=== PATIENT | female | born 1965 | race Caucasian/White ===

== ENCOUNTER 2019-06-18 05:39 | Observation (INO) | payer OTHER ==
[~2019-06-18] VITALS: Ht 170.2 cm; Wt 66.2 kg
--- NOTE | ~2019-06-18 | CON ---
[address] [address] CONSULTATION Name: VALLESHIELA Room: [address] IN M.R.#: [id number] Admission: 06/18/19 Attend Phys: Luis Sofia MD Discharge: Date of : 63 Report #: [id number] THIS REPORT FOR: //name// [facility] DATE OF SERVICE: 06/18/2019 HISTORY OF PRESENT ILLNESS: This is a 54-year-old female patient who was seen by me for diplopia. History is not very clear. She indicates that some problem with the left eye is going on for long time. She was never able to blink on the left side. She noticed some diplopia, looks like yesterday morning. It goes away by closing one eye. She also had some numbness on the left side, which she believes started when she got up. Review of systems is positive for rheumatoid arthritis. She took all kind treatment for that. She has knee problems and she thinks she needs a new knee, but because of active rheumatoid arthritis, they have not addressed that question yet. She is also under a lot of stress. She had a sinus surgery in the past. Records indicate that she has history of supraventricular tachycardia. She had a hysterectomy and according to the medical record, she had gastric sleeve. This was her relevant 14-point review of systems. PAST MEDICAL HISTORY: Positive for immunological disorder. FAMILY HISTORY: Unremarkable. SOCIAL HISTORY: She smokes, but does not drink much alcohol. PHYSICAL EXAMINATION: GENERAL: Indicates she is alert. NEUROLOGIC: She is responsive. She can follow simple commands. Her speech looks intact. 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 She does have some subjective problem with the left arm as far as sensation is concerned. Otherwise, neuromuscular examination was unremarkable. CARDIOPULMONARY: Cardiac and respiratory examinations appear noncontributory. VITAL SIGNS: Her blood pressure is 124/65, pulse is 75, and temperature is 99.9. IMAGING STUDY: Her CT angiogram was done by Emergency Room physician that does show some atherosclerotic disease, but does not show any vasculitis. LABORATORY DATA: White count is 6.5 and blood sugar is trace high at 154. 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 She also has some tingling and numbness in the left [place], [place] [address] CONSULTATION Name: SHIELA VALLE Room: [address] IN [facility]#: [id number] Admission: 06/18/19 Attend Phys: Luis Sofia MD Discharge: Date of : 63 Report #: [id number] is subjective. MRI is reasonable to exclude any pathology including demyelinating disorder or any small stroke. 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 I talked to the patient. I discussed the limitation of our hospital that an poultry pathologist does not come here on a regular basis and we do not have a website project manager. I discussed her options in that regard. She would like to stay here and get the preliminary workup done, but after that she will make an appointment with a website project manager and poultry pathologist to get the further workup done. I have ordered an MRI. I ordered acetylcholine receptor antibodies. I will order a thyroid function test and B12 and copper because of her sleeve surgery. We will see what it shows and decide about further management after that. Thank you very much for this referral. By: 1421 [id number] Gomez MD /nt
[2019-06-18 05:47] VITALS: BP 121/65
[2019-06-18] MEDS ORDERED: RAYOS5 MG PO (06:00)
[2019-06-18] MEDS ORDERED: PLAQUENIL200 MG PO (06:01)
[2019-06-18] MEDS ORDERED: METHOTREXATE IM (06:01)
[2019-06-18] MEDS ORDERED: SULFASALAZINE500 M4 PO (06:02)
[2019-06-18] MEDS ORDERED: OLMESARTAN PO (06:03)
[2019-06-18] MEDS ORDERED: [UNRECOGNIZED DRUG - OTHER] PO (06:03)
[2019-06-18] MEDS ORDERED: CHOLESTEROL MED (06:03)
[2019-06-18] MEDS ORDERED: PERCOCET 10-321 EAC1 PO (06:04)
[2019-06-18] MEDS ORDERED: PROZAC (06:06)
[2019-06-18 06:09] LABS: ABSOLUTE BASOPHILS 0.1 thou/uL (0.0-0.2); ABSOLUTE EOSINOPHILS 0.1 thou/uL (0.0-0.7); ABSOLUTE LYMPHOCYTES 1.8 thou/uL (0.8-5.3); ABSOLUTE MONOCYTES 0.7 thou/uL (0.0-1.2); ABSOLUTE NEUTROPHILS 3.8 thou/uL (1.6-8.1); BASOPHILS 1.1 %; EOSINOPHILS 1.1 %; HEMOGLOBIN 12.6 gm/dL (12.0-15.0); LYMPHOCYTES 27.9 %; MCH 28.4 pg (26.0-34.0); MCHC 33.1 g/dL (28.0-37.0); MCV 85.6 fL (80.0-100.0); MONOCYTES 10.5 %; MPV 7.9 fl. (7.2-11.1); NUCLEATED RBCS 0 /100WBC; PLATELET COUNT* 358 thou/uL (150-400); POLYS 59.4 %; RBC 4.44 mil/uL (4.20-5.00); RDW-CV 16.2 % (10.5-14.5); WBC 6.5 thou/uL (4.0-11.0)
[2019-06-18 06:19] LABS: PROTIME 10.6 Seconds (9.20-11.50)
[2019-06-18 06:23] LABS: CALCIUM 9.6 mg/dL (8.5-10.1); CREATININE 0.8 mg/dL (0.6-1.3); POTASSIUM 3.5 mmol/L (3.5-5.1)
[2019-06-18 06:33] LABS: ALBUMIN 3.4 g/dL (3.4-5.0); TOTAL BILIRUBIN 0.2 mg/dL (<0.1-1.0); TOTAL PROTEIN 6.8 g/dL (6.4-8.2)
--- NOTE | 2019-06-18 10:24 | NUR ---
PT ELOPED FACILITY AT 0900, STAFF NOT NOTIFIED OR SEE PATIENT LEAVE. PATIENT CAME BACK TO FACILITY AT 0925 AND WALKED BACK INTO HER ROOM WITH A [employer] CAPPACHINO IN HAND, DAUGHTER AT SIDE. PT STATES SHE JUST LEFT TO MOVE HER CAR AROUND. SHE LEFT FACILITY TO GET HER DAUGHTER BREAKFAST AT [employer]. SOHAIL KAYE ER CHARGE NURSE, SIDNEY TILLMAN SECURITY, AND I STATED TO HER THAT IS UNACCEPTABLE BEHAVIOR AND WILL NOT BE TOLERATED IN ER. SHE LEFT THE FACILITY WITH IV STILL IN PLACE AND STILL IN PLACE WHEN SHE CAME BACK. SHE WAS NOTIFIED SHE CAN NOT LEAVE THE FACILITY, ORDERS TO BE ADMITTED TO THE HOSPITAL AND SHE VERBALZIED UNDERSTANDING AND MOVING FORWARD WITH POC.
[2019-06-18 13:19] VITALS: BP 124/65
[2019-06-18 14:10] VITALS: BP 124/65
--- NOTE | 2019-06-18 14:10 | EKG ---
[place] [address] ELECTROCARDIOGRAM REPORT Name: VALLESHIELA Room: [place] [address] ADM IN [facility]#: [id number] Admission: 06/18/19 Attend Phys: Luis Sofia MD Discharge: Date of : 63 Report #: [id number] THIS REPORT FOR: //name// [facility] ED Test Date: 2019-06-18 Test Time: 06:08:45 Pat Name: SHIELA VALLE Department: Room: [facility] Gender: F [place]: [place] : 1965 Requested By: Aylin Rey Order Number: [id number] MD: Thien Mayorga Measurements Intervals [place] Rate: 83 P: 59 VA: 120 QRS: 83 QRSD: 82 T: 84 QT: 376 QTc: 442 Interpretive Statements Sinus rhythm Probable left atrial enlargement Nonspecific T abnormalities, diffuse No previous ECG available for comparison Electronically Signed On 06-18-2019 14:10:09 GREASE MAKER by Thien Mayorga [email or web address] <ELECTRONICALLY SIGNED> By: Thien Mayorga MD, [facility] 06/18/19 1410 0608 Thien Mayorga MD, FACC /EPI
[2019-06-18 15:30] VITALS: BP 147/66
--- NOTE | 2019-06-18 16:39 | NUR ---
PT ADMITTED TO ROOM 214 VIA CART FROM ED AFTER GOING TO MRI AT APPROXIMATELY 1530 WITH STROKE LIKE SYMPTOMS- DIPLOPIA AND LEFT HAND NUMBESS. PT ORIENTED TO ROOM AND CALL LIGHT. ADMISSION ASSESSMENT AND HISTORY COMPLETED. REFER TO CHARTING. SEPSIS SCREENING NEGATIVE. NIH COMPLETED- PT SCORING 0. PT REPORTS INTERMITTENT DOUBLE VISION. BEDSIDE SWALLOW COMPLETED WITH NO DIFFICULTIES. NEURO CONSULT IN PLACE. MULTIPLE MRI'S ORDERED. PT A&0X4, DENIES ANY PAIN OR SHORTNESS OF BREATH AT THIS TIME. TRACING SR ON THE REMOTE BROADCAST TECHNICIAN. ON RA SAT 98%. PT UP SBA AND CANE TO BATHROOM. IVF. PT CHILDREN TO BRING IN HOME MEDICATIONS SO MEDS CAN BE RECONCILED. PT HAD ECHO IN ROOM TODAY. PT REFUSED TO WORK WITH OT THIS AFTERNOON. MEDICATIONS PER MAR. PT REPOSITIONS SELF. HOURLY ROUNDING OBSERVED. BED IN LOW POSITION. CALL LIGHT WITHIN REACH. WILL CONTINUE PLAN OF CARE.
--- NOTE | 2019-06-18 17:20 | 2DMMODE ---
[place] [address] 2 D/M-MODE ECHOCARDIOGRAM Name: VALLESHIELA Room: [address] IN .R.#: [id number] Admission: 06/18/19 Attend Phys: Luis Sofia, Discharge: Date of : 63 Date of Service: 06/18/19 1719 Report #: [id number] THIS REPORT FOR: //name// APPROVED REPORT Study performed: 06/18/2019 15:22:26 EXAM: Comprehensive 2D, Doppler, and color-flow Echocardiogram Patient Location: In-Patient Status: routine BSA: 1.84 HR: 68 bpm BP: 121/65 mmHg Rhythm: NSR Other Information Study Quality: Good Indications CVA/TIA Echo Enhancing Agent Indication: Rule out Shunt Agent(s) / Amount(s) Used: Agitated Saline 10 cc 2D Dimensions IVSd: 11.18 (7-11mm) LVOT Diam: 20.38 (18-24mm) LVDd: 39.05 mm PWd: 11.19 (7-11mm) Ascending Ao: 28.18 (22-36mm) LVDs: 17.13 (25-40mm) Aortic Root: 26.58 mm Volumes Left Atrial Volume (Systole) LA ESV Index: 36.70 mL/m2 Aortic Valve AoV Peak Antonio.: 1.50 m/s AO Peak Gr.: 9.04 mmHg LVOT Max P.39 mmHg AO Mean Gr.: 4.63 mmHg LVOT Mean P.39 mmHg LVOT Max V: 1.05 m/s AO V2 VTI: 32.92 cm LVOT Mean V: 0.72 m/s GORDO (VTI): 2.66 cm2 LVOT V1 VTI: 26.85 [place] [address] 2 D/M-MODE ECHOCARDIOGRAM Name: SHIELA VALLE Room: [address] IN [facility]#: [id number] Admission: 06/18/19 Attend Phys: Luis Sofia, Discharge: Date of : 63 Date of Service: 06/18/19 1719 Report #: [id number] Mitral Valve E/A Ratio: 1.35 MV Decel. Time: 184.40 ms MV E Max Antonio.: 1.13 m/s MV PHT: 53.48 ms MVA (PHT): 4.11 cm2 TDI E/Lateral E': 9.42 E/Medial E': 10.27 Medial E' Antonio.: 0.11 m/s Lateral E' Antonio.: 0.12 m/s Pulmonary Valve PV Peak Antonio.: 0.96 m/s PV Peak Gr.: 3.71 mmHg Tricuspid Valve RAP Estimate: 5.00 mmHg TR Peak Gr.: 18.79 mmHg RVSP: 23.00 mmHg PA Pressure: 23.00 mmHg Left Ventricle The left ventricle is normal size. There is normal LV segmental wall motion. There is normal left ventricular wall thickness. Left ventricular systolic function is normal. LVEF is 60-65%. The left ventricular diastolic function is normal. Right Ventricle The right ventricle is normal size. The right ventricular systolic function is normal. Atria Left atrium is mildly dilated. Interatrial septum is intact without evidence of ASD or PFO. The right atrium size is normal. Aortic Valve The aortic valve is normal in structure. No aortic regurgitation is present. There is no aortic valvular stenosis. Mitral Valve The mitral valve is normal in structure. Trace mitral regurgitation. No evidence of mitral valve stenosis. Tricuspid Valve The tricuspid valve is normal in structure. Trace tricuspid regurgitation. [place] [address] 2 D/M-MODE ECHOCARDIOGRAM Name: SHIELA VALLE Room: [address]#: [id number] Admission: 06/18/19 Attend Phys: Luis Sofia, Discharge: Date of : 63 Date of Service: 06/18/19 1719 Report #: [id number] Pulmonic Valve The pulmonary valve is normal in structure. There is no pulmonic valvular regurgitation. Great Vessels The aortic root is normal in size. IVC is normal in size and collapses >50% with inspiration. Pericardium There is no pericardial effusion. <Conclusion> The left ventricle is normal size. There is normal left ventricular wall thickness. Left ventricular systolic function is normal. LVEF is 60-65%. The left ventricular diastolic function is normal. Trace mitral regurgitation. Trace tricuspid regurgitation. No pulmonary hypertension. IVC is normal in size and collapses >50% with inspiration. Interatrial septum is intact without evidence of ASD or PFO. <ELECTRONICALLY SIGNED> By: Ghassan De Los Santos MD, FACC 06/18/191718 18 18 Ghassan De Los Santos MD, FACC /INF
[2019-06-18] MEDS ORDERED: ERGOCAL2500 UNIT PO (17:30)
[2019-06-18] MEDS ORDERED: FLUOXETINE HCL40 MG PO (17:33)
[2019-06-18] MEDS ORDERED: BUSPIRONE HCL10 MG PO (17:35)
[2019-06-18] MEDS ORDERED: CRESTOR5 MG PO (17:37)
[2019-06-19] VITALS: BP 158/74
[2019-06-19 02:07] LABS: GLYCOHEMOGLOBIN (HGB A1C) 6.2 % (4.8-5.6)
[2019-06-19 04:00] VITALS: BP 163/80
[2019-06-19 05:24] LABS: CHOLESTEROL 146 mg/dL (<200); HDL CHOLESTEROL 53 mg/dL (>40); LDL CHOLESTEROL 81 mg/dL (<100); TC:HDL 2.8 Ratio (Not establshd); TRIGLYCERIDE 63 mg/dL (<150); VLDL 13 mg/dL (<40)
[2019-06-19 05:26] LABS: SERUM ASSESSMENT Clear
[2019-06-19 08:00] VITALS: BP 131/62
[2019-06-19 12:06] VITALS: BP 142/72
--- NOTE | 2019-06-19 12:36 | NUR ---
ASSUMED CARE OF PT AT 0730. PT RESTING IN BED WAITING FOR BREAKFAST. A&0X4, DENIES ANY PAIN OR SHORTNESS OF BREATH AT THIS TIME. PT GIVEN PAIN MEDICATION BY NOC SHIFT AT 0645. TRACING SR ON THE GUARD SERGEANT. NIH- NEGATIVE. PT STATES SHE HAS INTERMITTENT DIPLOPIA. ON RA SAT UPPER 90'S. PT UP AD MAREN IN ROOM. PT STARTED ON NICOTINE PATCH THIS AM. IVF. NEURO CONSULT IN PLACE. PT REFUSED PHYSICAL THERAPY THIS MORNING. EDUCATION GIVEN. PT GOAL FOR TODAY IS COMPLETE NEURO WORK UP AND DISCHARGE PLANNING TO HOME WITH OUTPT FOLLOW UP. AM ASSESSMENT CHARTED. MEDICATIONS PER MAR. PT REPOSITIONS SELF. HOURLY ROUNDING OBSERVED. BED IN LOW POSITION. CALL LIGHT WITHIN REACH. WILL CONTINUE PLAN OF CARE.
[2019-06-19] MEDS ORDERED: ASA81BEC PO (13:33)
[2019-06-19 13:44] VITALS: BP 142/72
--- NOTE | 2019-06-19 14:47 | NUR ---
DISCHARGE ORDERS RECEIVED. DISCHARGE INSTRUCTIONS, CARE NOTES AND FOLLOW UP APPTS GIVEN TO PT. PT COMMUNICATES UNDERSTANDING OF DISCHARGE TEACHING AND APPROPRIATE FOLLOW UPS. IV AND AIR LIFT OPERATOR REMOVED. PT DISCHARGED WITH ALL BELONGINGS AND PAPERWORK VIA WHEELCHAIR WITH NURSING STAFF TO CHILDRENS OWN PERSONAL VEHICLE.
== END 2019-06-19 14:48 | disposition home or self-care (01) ==
LOC: M.ERS 05:39 → M.2W 07:44 → M.TBA-ER 07:44 → M.2W 07:44
PROVIDERS: Emergency Medicine; ADMIT Internal Medicine
DX: H53.2 Diplopia (principal); I73.9 Peripheral vascular disease, unspecified; F17.210 Nicotine dependence, cigarettes, uncomplicated; M06.9 Rheumatoid arthritis, unspecified; I10 Essential (primary) hypertension